=== PATIENT | male | born 1990 | race Caucasian/White ===

== ENCOUNTER 2018-09-27 13:16 | Emergency (ER) | payer SELFPAY ==
--- NOTE | 2018-09-27 13:18 | ER Report ---
History and Physical Time Seen By MD: 13:15 HPI/ROS CHIEF COMPLAINT: Dental pain HISTORY OF PRESENT ILLNESS: Patient is a 27-year-old male here with complaints of dental cavities and fracture. Patient has 2 adjacent lower right molars which have deteriorated on the lateral aspect of the tooth as well as a upper posterior molar which is fractured and decaying. Two of the teeth have been decaying for an extended period of time however one of the lower molars reportedly just started to decay prompting evaluation. Patient reports that he currently does not have insurance and has been unable to be seen by a dentist. Denies fevers, facial swelling, difficulty swallowing. REVIEW OF SYSTEMS: Constitutional: No fever, no chills. Eyes: No discharge. ENT: No sore throat. + Poor dentition, 3 decaying molars as described above Skin: No rashes. Neurological: No headache. Cranial nerves intact Constitutional Vital Sign - Last 24 Hours 09/27/18 13:20 Temp 97.5 Pulse 80 Resp 16 B/P (MAP) 136/87 Pulse Ox 92 Physical Exam General Appearance: The patient is alert, has no immediate need for airway protection and no signs of toxicity. No acute distress Eyes: Pupils equal and round no pallor or injection. ENT, Mouth: Mucous membranes are moist. 2 adjacent lower right molars which have deteriorated on the lateral aspect of the tooth as well as a upper posterior molar which is fractured and decaying Neurological: No focal neurological deficits, cranial nerves intact Skin: Warm and dry, no rashes. DIFFERENTIAL DIAGNOSIS: After history and physical exam differential diagnosis was considered for dental abscess, cavities, dental fracture, osteomyelitis Medical Decision Making ED Course/Re-evaluation ED Course Patient is a 27-year-old male here with complaints of several dental caries with fracture with complaints of significant pain not responding to Advil. Dental block was performed in the superior and inferior alveolar distribution on the right side using 4 mL of 0.5% bupivacaine. 3 molars to on the lower right as well as one on the upper right were filled using dental cement. Patient was placed on antimicrobial coverage using penicillin VK 4 times a day 7 days. Prescription provided for tramadol. Information regarding outpatient dentistry was given. Return precautions were provided. Procedure Inferior and superior alveolar dental block: Proximally 4 mL of 0.5% bupivacaine was injected into the right posterior superior and inferior alveolar distribution. Patient tolerated procedure well. Decision to Disposition Date: Sep 27, 2018 Decision to Disposition Time: 13:55 Depart Departure Latest Vital Signs Vital Signs Date Time Temp Pulse Resp B/P (MAP) Pulse Ox O2 Delivery O2 Flow Rate FiO2 09/27/18 13:20 97.5 80 16 136/87 92 Impression: Primary Impression: Dental caries Condition: Improved Disposition: HOME OR SELF-CARE New Scripts Tramadol Hcl (TRAMADOL HCL) 50 Mg Tablet 50 MG PO Q6H PRN for PAIN, #12 TAB 0 Refills Prov: DAVI ANDERSON DO 09/27/18 Penicillin V Potassium 500 Mg Tab (PENICILLIN V POTASSIUM 500 MG TAB) 500 Mg Tablet 500 MG PO QID for 7 Days, #28 TAB Prov: DAVI ANDERSON DO 09/27/18 Patient Instructions: Dental Caries (DC) Additional Instructions: Please follow-up with outpatient dentistry for further evaluation and management. Please take penicillin 1 tablet 4 times daily for 7 days. Please use Advil or Tylenol as needed for primary pain control, you may take tramadol 1 tablet every 6-8 hours as needed for breakthrough pain control. Please return promptly if you develop facial swelling, fevers, difficulty swallowing, difficulty breathing, visual changes. DAVI ANDERSON DO Sep 27, 2018 13:18
[2018-09-27 13:20] VITALS: BP 136/87
[2018-09-27] MEDS ORDERED: PENI-24 PO (14:00)
[2018-09-27] MEDS ORDERED: TRAM-420 PO (14:00)
== END 2018-09-27 14:13 | disposition home or self-care (01) ==
LOC: ER 13:24
DX: K02.9 Dental caries, unspecified (principal); K08.89 Other specified disorders of teeth and supporting structures; K03.81 Cracked tooth
CPT/HCPCS: 99283